=== PATIENT | male | born 1980 | race Caucasian/White ===

== ENCOUNTER 2021-12-14 11:03 | Outpatient (CLI) | payer BC, SELFPAY ==
[2021-12-14 22:02] LABS: Albumin* 3.9 g/dL (3.3-5.0)
[2021-12-14 22:04] LABS: Bilirubin Direct* 0.2 mg/dL (0.0-0.5); Bilirubin Total* 0.7 mg/dL (0.1-1.5)
[2021-12-14 22:05] LABS: Alanine Aminotransferase* 39 U/L (4-50); Alkaline Phosphatase* 81 U/L (40-150); Aspartate Amino Transferase* 49 U/L (12-35)
== END 2021-12-14 11:04 | disposition home or self-care (01) ==
LOC: LKVREF 11:07
PROVIDERS: PCP Family Medicine; Visit Provider Family Medicine
DX: M10.9 Gout, unspecified (principal)
CPT/HCPCS: 80076

== ENCOUNTER 2023-02-26 13:57 | Outpatient (CLI) | payer BC, SELFPAY | END 2023-02-26 13:58 | disposition home or self-care (01) | PROVIDERS: PCP Emergency Medicine; Visit Provider Emergency Medicine | DX: M10.9 Gout, unspecified (principal); R53.83 Other fatigue | CPT/HCPCS: 80053; 84403; 84443; 84550 ==

== ENCOUNTER 2023-04-01 08:28 | Outpatient (CLI) | payer BC, SELFPAY | END 2023-04-01 08:29 | disposition home or self-care (01) | LOC: NFLDREF 04-04 11:59 | PROVIDERS: PCP Emergency Medicine; Referring Provider Emergency Medicine; Visit Provider Emergency Medicine | DX: R53.82 Chronic fatigue, unspecified (principal) | CPT/HCPCS: 84403 ==

== ENCOUNTER 2023-05-23 11:41 | Outpatient (CLI) | payer BC, SELFPAY | END 2023-05-23 11:42 | disposition home or self-care (01) | PROVIDERS: PCP Emergency Medicine; Visit Provider Emergency Medicine | DX: R53.83 Other fatigue (principal); R79.89 Other specified abnormal findings of blood chemistry | CPT/HCPCS: 83001; 83002; 84270; 84402; 84403; G0103 ==

== ENCOUNTER 2023-06-20 08:08 | Outpatient (CLI) | payer BC, SELFPAY | END 2023-06-20 08:09 | disposition home or self-care (01) | LOC: NFLDREF 06-21 05:55 | PROVIDERS: PCP Emergency Medicine; Referring Provider Emergency Medicine; Visit Provider Emergency Medicine | DX: E29.1 Testicular hypofunction (principal) | CPT/HCPCS: 82533; 83540; 84146; 84436; 84466 ==

== ENCOUNTER 2024-06-04 08:45 | Outpatient (CLI) | payer BC, SELFPAY | END 2024-06-04 08:46 | disposition home or self-care (01) | PROVIDERS: PCP Emergency Medicine; Visit Provider Emergency Medicine | DX: R79.89 Other specified abnormal findings of blood chemistry (principal); M10.9 Gout, unspecified | CPT/HCPCS: 84403; 84550 ==